=== PATIENT | female | born 1995 | race Caucasian/White ===

== ENCOUNTER → 2020-07-17 | Outpatient (REF) | payer OTHER, SELFPAY ==
[2020-07-17 17:41] LABS: HEMATOCRIT 37.7 % (36.0-47.0); HEMOGLOBIN 12.1 g/dl (12.0-15.5); MEAN CORPUSCULAR HEMOGLOBIN 28.2 pg (27.0-33.0); MEAN CORPUSCULAR HGB CONC 32.1 g/dl (32.0-36.5); MEAN CORPUSCULAR VOLUME 87.9 fl (80.0-96.0); PLATELET COUNT, AUTOMATED 272 10^3/uL (150-450); RED BLOOD COUNT 4.29 10^6/uL (4.00-5.40); WHITE BLOOD COUNT 12.7 10^3/uL (4.0-10.0)
[2020-07-17 17:56] LABS: GLUCOSE CHALLENGE TEST 1 HOUR 126 MG/DL (LESS THAN 140)
[2020-07-17 18:51] LABS: HIV 1&2 SCREEN CENTAUR NEGATIVE (NEGATIVE)
== END ==
LOC: M PLALAB 14:10
PROVIDERS: ATTEND Obstetrics & Gynecology
DX: Z34.91 Encounter for supervision of normal pregnancy, unspecified, first trimester (principal); Z3A.09 9 weeks gestation of pregnancy

== ENCOUNTER → 2020-08-14 | Outpatient (REF) | payer SELFPAY | LOC: M SFHCWAGY 17:20 | PROVIDERS: ATTEND Advanced Practice Midwife | DX: Z12.4 Encounter for screening for malignant neoplasm of cervix (principal) ==

== ENCOUNTER → 2020-12-06 | Outpatient (REF) | payer SELFPAY ==
[2020-12-06 13:43] LABS: HEMATOCRIT 38.5 % (36.0-47.0); HEMOGLOBIN 12.4 g/dl (12.0-15.5); MEAN CORPUSCULAR HEMOGLOBIN 29.2 pg (27.0-33.0); MEAN CORPUSCULAR HGB CONC 32.2 g/dl (32.0-36.5); MEAN CORPUSCULAR VOLUME 90.8 fl (80.0-96.0); PLATELET COUNT, AUTOMATED 210 10^3/uL (150-450); RED BLOOD COUNT 4.24 10^6/uL (4.00-5.40); WHITE BLOOD COUNT 12.6 10^3/uL (4.0-10.0)
== END ==
LOC: M PLALAB 08:56
PROVIDERS: ATTEND Advanced Practice Midwife
DX: Z3A.25 25 weeks gestation of pregnancy (principal)

== ENCOUNTER → 2020-12-28 | Outpatient (CLI) | payer SELFPAY ==
--- NOTE | 2020-12-28 16:45 | REP ---
INDICATION: F/U ANATOMY. COMPARISON: 11/29/2020. TECHNIQUE: Real-time sonographic evaluation of the gravid uterus performed. FINDINGS: Estimated gestational age is32 weeks 3 days, EDC 02/19/2019. Today's measurements indicate appropriate growth. Presentation: Cephalic Placenta anterior, grade 1, without evidence of placenta previa. heart rate is recorded at 128 beats per minute. Amniotic fluid is subjectively normal. PEARL 12.0, normal 8.5-24.3. Closed cervical length is measured at 3.3 cm. Biometry chart: BPD: 84 mm, 33 weeks 5 days, 68th percentile. HC: 309 mm, 34 weeks 4 days, 81st percentile AC: 281 mm, 32 weeks 1 days, 46th percentile Femur length: 62 mm, 32 weeks 2 days, 47th percentile HC to AC ratio: 1.10, normal range 0.95-1.14. Estimated weight: 1994g, 43rd percentile. The four-chamber heart and ventricular outflow tracts are visualized on today's exam and are grossly unremarkable. IMPRESSION: Viable single intrauterine gestation as above. <Electronically signed by Nimesh Hubbard > 12/28/20 [id number]
== END ==
LOC: M WHC 14:41
PROVIDERS: ATTEND Advanced Practice Midwife
DX: Z34.82 Encounter for supervision of other normal pregnancy, second trimester (principal); Z3A.29 29 weeks gestation of pregnancy

== ENCOUNTER → 2022-07-08 | Outpatient (CLI) | payer SELFPAY ==
[2022-07-08 13:38] LABS: HEMATOCRIT 37.1 % (36.0-47.0); HEMOGLOBIN 12.1 g/dl (12.0-15.5); MEAN CORPUSCULAR HGB CONC 32.6 g/dl (32.0-36.5); PLATELET COUNT, AUTOMATED 221 10^3/uL (150-450); RED BLOOD COUNT 4.17 10^6/uL (4.00-5.40)
[2022-07-08 15:19] LABS: GC DNA AMPLIFICATION NEGATIVE (NEGATIVE)
[2022-07-09 23:13] LABS: HEPATITIS C VIRUS ABY INDEX < 0.0 INDEX (<0.8); HIV 1&2 SCREEN CENTAUR NEGATIVE (NEGATIVE)
== END ==
LOC: M PLALAB 10:59
PROVIDERS: ATTEND Advanced Practice Midwife
DX: Z34.91 Encounter for supervision of normal pregnancy, unspecified, first trimester (principal)

== ENCOUNTER → 2022-08-25 | Outpatient (CLI) | payer SELFPAY | LOC: M WHC 06:50 | PROVIDERS: ATTEND Midwife | DX: Z34.82 Encounter for supervision of other normal pregnancy, second trimester (principal); Z3A.19 19 weeks gestation of pregnancy ==

== ENCOUNTER → 2022-09-16 | Outpatient (CLI) | payer SELFPAY | LOC: M WHC 07:45 | PROVIDERS: ATTEND Midwife | DX: Z34.82 Encounter for supervision of other normal pregnancy, second trimester (principal); Z3A.22 22 weeks gestation of pregnancy; Z36.2 Encounter for other antenatal screening follow-up ==

== ENCOUNTER → 2022-11-07 | Outpatient (CLI) | payer SELFPAY ==
[2022-11-07 13:54] LABS: HEMATOCRIT 35.7 % (36.0-47.0); HEMOGLOBIN 11.3 g/dl (12.0-15.5); MEAN CORPUSCULAR HEMOGLOBIN 28.5 pg (27.0-33.0); MEAN CORPUSCULAR HGB CONC 31.7 g/dl (32.0-36.5); MEAN CORPUSCULAR VOLUME 90.2 fl (80.0-96.0); PLATELET COUNT, AUTOMATED 230 10^3/uL (150-450); RED BLOOD COUNT 3.96 10^6/uL (4.00-5.40); WHITE BLOOD COUNT 10.7 10^3/uL (4.0-10.0)
== END ==
LOC: M PLALAB 08:46
PROVIDERS: ATTEND Midwife
DX: Z36.9 Encounter for antenatal screening, unspecified (principal)